=== PATIENT | male | born 1970 | race Caucasian/White ===

== ENCOUNTER → 2017-02-02 | Outpatient (CLI) | payer BC ==
[~2017-02-02] MED LIST: KETO10TA PO; OXYC-57 PO
--- NOTE | 2017-02-02 11:14 | DIAGNOSTIC IMAGING REPORT ---
ORBIT RADIOGRAPHS 3 VIEWS HISTORY: pre-MRI screening. COMPARISON: None. FINDINGS: There are no radiopaque foreign bodies identified within the orbits. IMPRESSION: No radiopaque foreign bodies identified within the orbits. Electronically signed by: Tray Montoya M.D. 02/02/2017 11:13 AM Dictated Date/Time: 02/02/2017 11:12 AM
--- NOTE | 2017-02-02 13:16 | DIAGNOSTIC IMAGING REPORT ---
MRI OF THE LEFT SHOULDER CLINICAL HISTORY: Left shoulder pain. COMPARISON STUDY: MRI of the left shoulder dated 11/01/2015. Radiographs of the left shoulder dated 10/10/2015. TECHNIQUE: MRI of the left shoulder was performed utilizing various T1 and T2 weighted sequences in the axial, sagittal, coronal planes. IV contrast was not administered for this examination. Note that interpretation is suboptimal without current plain film correlate. FINDINGS: Rotator cuff: There is tendinopathy of the supraspinatous tendon with extensive undersurface tearing. A small full-thickness tear is seen posteriorly near the musculotendinous junction on coronal image #13. No musculotendinous retraction is seen. There is tendinopathy of the infraspinatus tendon with partial-thickness undersurface tearing at the leading edge. There is tendinopathy with high-grade partial-thickness tearing of the subscapularis tendon. A few of the distal fibers remain intact. The teres minor is intact. There is subdeltoid bursal fluid. Mild productive degenerative change is noted at the acromioclavicular joint. Biceps tendon: There is tendinopathy of the long head of the biceps tendon with high-grade partial-thickness tearing. There is mild medial subluxation of the long head of the biceps tendon at the level of the humeral head. The anchor is maintained. Labrum: There is truncation of the labrum with circumferential degeneration/tearing. A soft tissue Bankart lesion is suspected. Shoulder joint: There is a small joint effusion. The articular cartilage over the glenoid is well maintained. There is marked marrow edema identified within the greater tuberosity of the humeral head. A contusion/impaction type injury is not excluded. There is trace subcoracoid bursal fluid. Musculature and soft tissues: There is mild edema involving the infraspinatus muscle. The musculature of the shoulder is normal in bulk and signal intensity. No atrophy is seen. IMPRESSION: 1. There is marked marrow edema seen within the posterior aspect of the humeral head. Contusion/impaction injury is not excluded. 2. The labrum appears truncated and there is circumferential tearing. A soft tissue Bankart lesion is suspected. 3. There is tendinopathy with high-grade partial-thickness tearing of the long head of the biceps tendon. There is mild medial subluxation of the tendon at the level of the humeral head. 4. There is tendinopathy with multifocal undersurface tearing of the supraspinatous tendon. A small full-thickness tear is identified posteriorly at the musculotendinous junction. 5. There is tendinopathy with high-grade partial-thickness tearing of the subscapularis tendon. There is also mild undersurface tearing of the infraspinatus tendon at the leading edge. 6. Joint effusion. Electronically signed by: Ibrahima Elizabeth M.D. 02/02/2017 1:14 PM Dictated Date/Time: 02/02/2017 1:03 PM
== END | disposition home or self-care (01) ==
LOC: C.RADBC 10:49
PROVIDERS: ATTEND Orthopaedic Surgery
DX: S43.402A Unspecified sprain of left shoulder joint, initial encounter (principal); S46.112A Strain of muscle, fascia and tendon of long head of biceps, left arm, initial encounter; S46.012A Strain of muscle(s) and tendon(s) of the rotator cuff of left shoulder, initial encounter; X58.XXXA Exposure to other specified factors, initial encounter; M25.412 Effusion, left shoulder; R60.0 Localized edema

== ENCOUNTER → 2017-02-02 | Outpatient (CLI) | payer OTHER, BC ==
[2017-02-02 15:40] LABS: BASO % 0.2 %; BASO ABS # 0.02 K/uL (0-0.2); COMPLETE YES; EOS % 3.5 %; HEMATOCRIT 46.8 % (42-52); IG% 0.5 %; LYMPH % 22.2 %; MEAN CELL VOLUME 89.5 fL (80-100); MEAN CORPUSCULAR HGB CONC 33.5 g/dl (32-36); MEAN PLATELET VOLUME 10.3 fL (7.4-10.4); MONO % 9.5 %; NEUT % 64.1 %; PLATELET COUNT 268 K/uL (130-400); RED BLOOD COUNT 5.23 M/uL (4.7-6.1); WHITE BLOOD COUNT 8.11 K/uL (4.8-10.8)
[2017-02-02 16:02] LABS: BLOOD UREA NITROGEN 12 mg/dl (7-18); BUN/CREATININE RATIO 12.4 (10-20); CALCIUM 8.5 mg/dl (8.5-10.1); CARBON DIOXIDE 30 mmol/L (21-32); CHLORIDE 107 mmol/L (98-107); CREATININE 0.95 mg/dl (0.60-1.40); GLUCOSE 81 mg/dl (70-99); SODIUM 142 mmol/L (136-145)
== END | disposition home or self-care (01) ==
LOC: C.CPL 14:38
PROVIDERS: ATTEND Orthopaedic Surgery
DX: Z01.812 Encounter for preprocedural laboratory examination (principal); Z01.810 Encounter for preprocedural cardiovascular examination; M75.122 Complete rotator cuff tear or rupture of left shoulder, not specified as traumatic

== ENCOUNTER → 2017-02-18 | Day surgery (SDC) | payer OTHER, BC ==
[2017-02-04 15:36] VITALS: Ht 185.4 cm; Wt 122.7 kg
[~2017-02-18] VITALS: Ht 185.4 cm; Wt 122.7 kg
[~2017-02-18] MED LIST changes: +ATROPINE SULFATE 0.1 MG/ML 5ML SYR IV PRN; +BUPIVACAINE/EPINEPHRINE 0.25% 1:200,000 30 ML VIAL ONE; +CEFAZOLIN 3000 MG/65 ML D5W IV SCH; +DEXAMETHASONE SOD INJ 4 MG/ML VIAL IV PRN; +DEXAMETHASONE SOD INJ 4 MG/ML VIAL ONE; +EpHEDrine SULFATE INJ 50 MG/ML AMP IV PRN; +EpINEphrine INJ 1MG/ML AMP 1 MG/ML AMP ONE; +FENTANYL CITRATE INJ 50 MCG/1 ML 2 ML VIAL IV PRN; +FENTANYL CITRATE INJ 50 MCG/1 ML 2 ML VIAL ONE; +KETOROLAC TROMETHAMINE 30 MG/ML VIAL IV. PRN; +LABETALOL HCL IV 5 MG/ML 20ML IV ONE; +LABETALOL HCL IV 5 MG/ML 20ML IV PRN; +LIDOCAINE HCL 1% MPF 2 ML VIAL ONE; +LIDOCAINE HCL 2% 2 ML VIAL (20MG/ML) ONE; +METOCLOPRAMIDE HCL INJ 5 MG/ML 2 ML VIAL IV PRN; +MIDAZOLAM HCL 1 MG/ML 2ML VIAL ONE; +MoRPHine SULFATE 10 MG/ML CARP/VIAL IV PRN; +ONDANSETRON INJ 2 MG/ML 2 ML VIAL IV PRN; +ONDANSETRON INJ 2 MG/ML 2 ML VIAL ONE; +OXYCODONE/ACETAMINOPHEN 5-325 TAB PO PRN; +PHENYLEPHRINE 100MCG/ML 5ML SYR IV PRN; +PROPOFOL IV EMULSION 10 MG/ML 20 ML VIAL IV ONE; +ROPIVACAINE 0.5% 5 MG/ML 30 ML VIAL ONE; +SODIUM CHLORIDE 0.9% 1000ML 1,000 ML IV SCH
--- NOTE | 2017-02-18 08:05 | History & Physical Bridge - SC ---
H&P Re-Evaluation Bridge Note: I have examined the patient, reviewed the History & Physical and in the interval since the performance of the History & Physical I have noted the following changes of clinical significance: No changes noted
[2017-02-18] MEDS: LACTATED RINGER'S 1000ML 1,000 ML IV SCH ×2 (08:28→11:38)
--- NOTE | 2017-02-18 11:17 | Discharge Instructions-SurgCtr ---
Discharge Instructions Date of Service Feb 18, 2017. Visit Reason for Visit: Left Shoulder Full Thickness Rotator Cuff Tear Discharge Discharge Diagnosis / Problem: SAME ABOVE Discharge Goals Goal(s): Decrease discomfort, Improve function Activity Recommendations Activity Limitations: as noted below Lifting Limitations: until after follow-up appointment Exercise/Sports Limitations: until after follow-up appointment Shower/Bathe: tomorrow Driving or Machine Use: NOT UNTIL AFTER FOLLOW-UP Anesthesia . Post Anesthesia Instructions: If you have had General Anesthesia or IV Sedation: * Do not drive today. * Resume driving when surgeon permits. * Do not make important decisions or sign legal documents today. * Call surgeon for: 1. Temperature elevations greater than 101 degrees F. 2. Uncontrollable pain. 3. Excessive bleeding. 4. Persistent nausea and vomiting. 5. Medication intolerance (nausea, vomiting or rash). * For nausea and vomiting use only clear liquids such as: tea, soda, bouillon until nausea subsides, then gradually increase diet as tolerated. * If you have any concerns or questions, call your surgeon's office. If physician is unavailable and it is an emergency, call 911 or go to the nearest emergency room. . Instructions / Follow-Up Instructions / Follow-Up MEDICATIONS: * Resume previous medications unless instructed otherwise by your surgeon. * Always take pain medication on a full stomach or with food to avoid upset stomach. * Do not drink alcohol or drive while taking narcotics. * Ibuprofen or Tylenol may be taken if narcotic not needed. SPECIAL CARE INSTRUCTIONS: __ None _X_ Keep extremity elevated and iced x 48 hours; apply ice 20-30 minutes 8-10 times/day. May remove at night. _X_ Sling (WEAR NEEDED FOR COMFORT) __24 hrs/day __ Remove at night __ Shoulder Immobilizer __ 24 hrs/day __ Remove at night _X_ Dressing __ Maintain until seen in office, may shower with plastic over site _X_ Remove dressings in 24-48 hours and then may shower _X_ Cover incisions with band-aids after showering __ Do not remove steri-strips Call physician if chills or temperature rises above 102 degrees or pain unrelieved by prescribed pain medications at . . Diet Recommendations Home Diet: no limitations Fluid Restriction: None Procedures Procedures Performed: Left Shoulder Arthoscopy, Extensive Debridement, Acromioplasty Pending Studies Studies pending at discharge: no Work Instructions Return To Work: after follow-up Lifting Limitations: NO LIFTING WITH LEFT ARM Medical Emergencies . Who to Call and When: Medical Emergencies: If at any time you feel your situation is an emergency, please call 911 immediately. . Non-Emergent Contact Non-Emergency issues call your: Primary Care Provider Call Non-Emergent contact if: you have a fever, temperature is above 101.5 . . "Provider Documentation" section prepared by Del Bojorquez. .
[2017-02-18 11:52] VITALS: TEMP 36.6
--- NOTE | 2017-02-18 11:52 | Anesthesia Progress Nt - [facility] ---
Anesthesia Post Op Note Date & Time Feb 18, 2017 at 11:52 Vital Signs Pain Intensity: 0 Vital Signs Past 12 Hours Date Time Temp Pulse Resp B/P (MAP) Pulse Ox O2 Delivery O2 Flow Rate FiO2 02/18/17 11:46 36.6 136/90 02/18/17 11:43 92 23 02/18/17 11:43 93 23 95 02/18/17 11:41 136/107 02/18/17 11:38 88 21 94 02/18/17 11:38 88 21 02/18/17 11:36 127/90 02/18/17 11:33 88 18 02/18/17 11:33 88 18 98 02/18/17 11:31 123/91 02/18/17 11:28 89 21 02/18/17 11:28 89 21 99 02/18/17 11:26 121/92 02/18/17 11:24 136/88 02/18/17 11:23 92 23 99 02/18/17 11:23 92 23 02/18/17 11:21 134/100 02/18/17 11:18 88 12 02/18/17 11:18 88 12 122/98 98 02/18/17 11:18 36.4 88 16 122/98 98 Mask 6 02/18/17 09:58 102 02/18/17 09:58 102 0 98 02/18/17 09:57 102 02/18/17 09:57 104 29 98 02/18/17 09:56 149/106 02/18/17 09:55 112 02/18/17 09:55 112 35 97 02/18/17 09:54 105 02/18/17 09:54 105 25 98 02/18/17 09:51 143/96 02/18/17 09:49 108 27 97 02/18/17 09:49 108 02/18/17 09:46 146/107 02/18/17 09:44 101 29 98 02/18/17 09:44 103 02/18/17 09:41 157/107 02/18/17 09:39 86 02/18/17 09:39 90 24 145/108 98 02/18/17 09:34 91 02/18/17 09:34 103 0 96 02/18/17 09:29 94 02/18/17 09:29 93 0 95 02/18/17 09:24 94 02/18/17 09:24 91 0 93 02/18/17 09:19 92 02/18/17 09:19 93 0 94 02/18/17 09:14 98 02/18/17 09:14 99 0 96 02/18/17 08:04 37.2 88 16 157/107 (124) 96 Room Air Notes Mental Status: alert / awake / arousable, participated in evaluation Pt Amnestic to Procedure: Yes Nausea / Vomiting: adequately controlled Pain: adequately controlled Airway Patency, RR, SpO2: stable & adequate BP & HR: stable & adequate Hydration State: stable & adequate Anesthetic Complications: no major complications apparent
[2017-02-18 12:13] VITALS: BP 131/87; O2SAT 95
--- NOTE | 2017-02-18 15:40 | [facility] Post Operative Brief Note ---
Immediate Operative Summary Operative Date Feb 18, 2017. Pre-Operative Diagnosis Left Shoulder Full Thickness Rotator Cuff Tear Post-Operative Diagnosis Left Shoulder Extensive Impingment, Synovitis Procedure(s) Performed Left Shoulder Arthoscopy, Extensive Debridement, Acromioplasty Surgeon Dr. Marilin Chester Player Manager Surgeon(s) Minor Bojorquez PA-C Estimated Blood Loss 5cc Findings as above Specimens none Complication(s) None Disposition Recovery Room / PACU
--- NOTE | 2017-02-23 16:20 | OPERATIVE REPORT ---
PREOPERATIVE DIAGNOSIS: High-grade partial rotator cuff tear of the left shoulder. POSTOPERATIVE DIAGNOSIS: Severe external impingement without evidence of cuff tear. PROCEDURE: Left shoulder diagnostic arthroscopy with extensive debridement and acromioplasty. SURGEON: Dr. Max Chester. SLIDE FASTENER REPAIRER: Minor Bojorquez PA-C whose assistance was necessary for positioning of the arm and helping with instrumentation. ANESTHESIA: General with left interscalene nerve block. COMPLICATIONS: None. CONDITION: Stable to PACU. INDICATIONS: Rambo is a pleasant 46-year-old male who has been having left shoulder pain since October 07. He was in a golf cart at work when he hit a pothole and jammed his shoulder. He did have an MRI of his shoulder which showed a possible partial thickness cuff tear and some tendinopathy of the biceps tendon. After failing extensive conservative treatment he elected to undergo arthroscopy. On February 18, 2017 he arrived at [facility] for the above procedure. He was seen in the preoperative holding area and the operative extremity was identified and signed. He was given a preoperative antibiotic and a left interscalene nerve block. He was taken back to the operating room and laid on the table in supine position and put under general anesthesia. He was put into the beach chair position and the left shoulder was prepped and draped in sterile fashion. A timeout was done and the patient and operative extremity were properly identified. A scope was introduced in the posterior portal. Diagnostic arthroscopy showed no cartilage hemorrhage to the humeral head of the glenoid. There was some fraying of the anterior labrum and it was incarcerated within the joint some. The biceps tendon was intact and when through a normal size biceps mignon mechanism. It was not subluxated medially. The suprapsinatous, infraspinatous, teres minor and subscapularis were all checked and intact. There was a lot of redness and inflammation throughout the rotator interval and on the superior aspect of the shoulder. It was not an adhesive capsulitis. There was just a lot of synovitis. An anterior portal was made. A shaver was used to do an extensive debridement of the intraarticular structures to debris back the unstable portions of the labrum and to debride out the inflamed synovium. The scope was then put in the subacromial space. Lateral portal was made. A shave was used to do a complete subacromial and subdeltoid bursectomy. An ablator was used to tease the coracoacromial ligament off the undersurface of the acromion and a 5-0 bur was used to clean the chromioplasty of a very large Bigliani type 3 acromion. A shaver was used to remove any excess debris. Attention was turned to the rotator cuff. A small additional anterolateral portal was made and the rotator cuff was examined extensively from the bursal side without any evidence of bursal tear or interstitial tear. The scope was placed back into the glenohumeral joint. The biceps tendon was pulled into the joint. I did not see any signs of pathology or splitting of the biceps tendon. I saw no additional pathology. Arthroscopic instruments were removed from the shoulder. Portal sites were closed with 3-0 Nylon. He was then placed in a soft dressing and a regular arm sling. He was then extubated, transferred to a [facility] and taken to the post-anesthesia care unit in stable condition. He tolerated the procedure well.
== END | disposition home or self-care (01) ==
LOC: X.SURG 07:50
PROVIDERS: ATTEND Orthopaedic Surgery
DX: S46.012A Strain of muscle(s) and tendon(s) of the rotator cuff of left shoulder, initial encounter (principal); X58.XXXA Exposure to other specified factors, initial encounter; I10 Essential (primary) hypertension; Z90.89 Acquired absence of other organs; Z90.49 Acquired absence of other specified parts of digestive tract; Z98.890 Other specified postprocedural states